=== PATIENT | male | born 1945 | race Caucasian/White ===

== ENCOUNTER 2017-10-25 09:23 | Outpatient (CLI) | payer MEDICARE, MEDICAID ==
[2017-10-25 10:07] LABS: #Basophils 0.1 thou/uL (0.0-0.2); #Eosinphils 0.1 thou/uL (0.0-0.7); #Lymphocytes 2.1 thou/uL (1.20-3.40); #Monocytes 0.6 thou/uL (0.11-0.59); #Neutrophils 4.8 thou/uL (1.40-6.50); %Basophils 0.8 % (0.0-1.0); %Lymphocytes 27.3 % (21.0-51.0); %Monocytes 8.1 % (0.0-10.0); %Neutrophils 62.9 % (42.0-75.0); Hemoglobin 15.1 g/dL (14.0-18.0); Mean Corpuscular HGB CONC 34.1 g/dL (32.0-36.0); Mean Corpuscular Hemoglobin 31.8 pg (27.0-31.0); Mean Corpuscular Volume 93.2 fl (80.0-94.0); Mean Platelet Volume 5.9 fL (7.4-10.4); Platelet Count 258 thou/uL (130-400); RBC Distribution Width 12.2 % (11.5-14.5); Red Blood Cell (RBC) Count 4.76 mill/uL (4.70-6.10); White Blood Cell (WBC) Count 7.6 thou/uL (4.8-10.8)
[2017-10-25 10:16] LABS: Bilirubin Negative (Negative); Blood, Urine Negative (Negative); Clarity CLEAR (Clear); Glucose, Urine (Dipstick) Negative (Negative); Leukocyte Negative (Negative); Nitrite Negative (Negative); Protein, Urine (Dipstick) Negative (Neg-Trace); Specific Gravity, Urine 1.013 (1.002-1.036); Urobilinogen 0.2 mg/dL (0.2-1.0); pH, Urine 6.5 (5.0-9.0)
[2017-10-25 10:20] LABS: Bacteria/HPF None Seen HPF (None Seen); Hyaline Casts/LPF 0-3 HYALINE CAST LPF (0-3 Hyaline); RBC/HPF 0-3 HPF (0-3); Squamous Epithelial None Seen HPF (0-3); WBC/HPF None Seen HPF (0-3)
[2017-10-25 10:24] LABS: INR-International Normal Ratio 1.1; Prothrombin Time 14.5 SEC (12.0-14.7)
[2017-10-25 10:28] LABS: Anion Gap 11 mmol/L (10-20); BUN (Urea Nitrogen) 19 mg/dL (8.4-25.7); Calc. Creatinine Clearance 0 mL/min (70-130); Calcium 9.8 mg/dL (7.8-10.44); Carbon Dioxide 31 mmol/L (23-31); Chloride 101 mmol/L (98-107); Estimated GFR-MDRD 67; Glucose 100 mg/dL (83-110); Potassium 4.1 mmol/L (3.5-5.1); Sodium 139 mmol/L (136-145)
== END 2017-10-25 09:24 | disposition home or self-care (01) ==
LOC: LABBT 09:23
PROVIDERS: ATTEND Orthopaedic Surgery
DX: Z01.818 Encounter for other preprocedural examination (principal); M17.11 Unilateral primary osteoarthritis, right knee
CPT/HCPCS: 80048; 81001; 85025; 85610; 87081; 93005; 93010

== ENCOUNTER 2017-11-01 09:50 | Outpatient (CLI) | payer MEDICARE, MEDICAID | END 2017-11-01 09:51 | disposition home or self-care (01) | LOC: LABBT 09:50 | PROVIDERS: ATTEND Orthopaedic Surgery | DX: Z01.818 Encounter for other preprocedural examination (principal); M17.11 Unilateral primary osteoarthritis, right knee | CPT/HCPCS: 86850; 86900; 86901 ==

== ENCOUNTER 2017-11-05 06:52 | Day surgery (SDC) | payer MEDICARE, MEDICAID ==
[2017-10-25 12:31] VITALS: BMI 33.9
[2017-11-05] MEDS ORDERED: Sodium Chloride 0.9% 100 ML ONE (07:14)
[2017-11-05] MEDS ORDERED: CEFAZOLIN/Water 2 GM/20 ML SYRINGE ONE (07:14)
[2017-11-05] MEDS ORDERED: Vancomycin HCl 1.5 GM in Sodium Chloride 0.9% 250 ML 300 ML IVPB SCH (07:30)
[2017-11-05] MEDS ORDERED: Ondansetron HCl/PF 4 MG/2 ML Vial IVP PRN ×3 (07:43→11:32)
[2017-11-05] MEDS ORDERED: Ropivacaine 0.5% HCl/PF (150 MG/30 ML VIAL) ONE (07:46)
[2017-11-05] MEDS ORDERED: Midazolam HCl 2 mg/2 ml Vial ONE (07:46)
[2017-11-05] MEDS ORDERED: Fentanyl 100 MCG/2 ML VIAL ONE ×2 (07:46→11:38)
[2017-11-05] MEDS ORDERED: Promethazine HCl 25 MG/ML VIAL IM PRN ×2 (08:21→11:32)
[2017-11-05] MEDS ORDERED: traMADol HCl 50 MG TAB PO PRN ×3 (08:21→11:32)
[2017-11-05] MEDS ORDERED: Bupivacaine 0.5% 50 ML in Sodium Chloride 0.9% 50 ML NERVE BLCK SCH (08:21)
[2017-11-05] MEDS ORDERED: HYDROcodone/Acetaminophen 10/325 mg Tablet PO PRN (08:21)
[2017-11-05] MEDS ORDERED: Zolpidem Tartrate 5 MG TAB PO PRN ×2 (08:21→11:32)
[2017-11-05] MEDS ORDERED: Fentanyl 100 MCG/2 ML VIAL IV PRN (08:22)
[2017-11-05] MEDS ORDERED: Meperidine HCl/PF 25 MG/ML VIAL ONE (10:07)
[2017-11-05] MEDS ORDERED: Bupivacaine HCl 0.5%/Epinephrine 1:200,000/PF 30 ml Vial ONE (10:09)
[2017-11-05] MEDS ORDERED: Dexamethasone 20 MG/5 ML VIAL ONE (10:46)
[2017-11-05] MEDS ORDERED: Ondansetron HCl/PF 4 MG/2 ML Vial ONE (10:46)
[2017-11-05] MEDS ORDERED: PROPOFOL 200 MG/20 ML VIAL ONE (10:46)
[2017-11-05] MEDS ORDERED: diphenhydrAMINE 25 MG CAP PO PRN (11:32)
[2017-11-05] MEDS ORDERED: Acetaminophen 325 MG TAB PO PRN (11:32)
[2017-11-05] MEDS ORDERED: Tranexamic Acid 1,000 MG in Sodium Chloride 0.9% 100 ML IVPB SCH (11:45)
--- NOTE | 2017-11-05 11:49 | OP ---
DATE OF PROCEDURE: 11/05/2017 PREOPERATIVE DIAGNOSIS: Right knee osteoarthrosis. POSTOPERATIVE DIAGNOSIS: Right knee osteoarthrosis. PROCEDURE PERFORMED: Right total knee replacement using Acomni pinless navigation. SURGEON: Paresh Patel M.D. IT INFRASTRUCTURE ENGINEER: Severino Abbasi PA-C. BLOOD LOSS: Minimal. COMPLICATIONS: None. ANESTHESIA: The patient had general anesthetic as well as a preoperative block. COMPLICATIONS: There were no complications. IMPLANTS: To the right knee is Triathlon total knee system, the femur was size 4, cruciate retaining . We used a size 5 universal tibial baseplate. We used a 5 x 13 mm CS X3 poly and we used an asymme tric 29 x 9 X3 patella. CONDITION: He did go to the recovery room in stable condition. INDICATIONS: This is a 72-year-old male who has failed nonoperative treatment for severe knee arthri tis and pain and at this time, he wished to have surgery. PROCEDURE IN DETAIL: After all appropriate consent forms were explained and signed, the patient was taken back to the Operating Room and at this time was given general anesthetic. Once the level of an esthesia was appropriate, a well-padded tourniquet was placed on the right leg and the leg was then p repped and draped in standard surgical fashion. The limb was exsanguinated and tourniquet taken up t o 300 mmHg. Midline incision was made with a 10 blade down through the skin and subcutaneous tissue. Bovie electrocautery was used to coagulate any brisk venous bleeding. A new blade was used to make a medial parapatellar arthrotomy. Small subperiosteal release was performed medially and excess fat pad was removed. The knee was flexed up to gain access to the femur. The femur was navigated and d istal femoral resection was made. Epicondylar access was used to align our sizing jig and this was p inned in place. We sized our femur to be a 4. A 4:1 cutting block was applied and pinned. Anterior and posterior chamfer cuts were then made. We navigated out our proximal tibia and made our proxima l tibial resection. Spreaders were used to remove any posterior osteophytes off the back of the femu r as well as remaining meniscal tissue. A long alignment delmer was then used to achieve correct rotati on of our tibial baseplate and a size 5 was chosen. This was pinned in place. We trialed the polyet hylene and a 5 x 13 mm CS X3 polyethylene gave us full extension and good stability throughout range of motion. Two towel clips and a saw were used to cut our patella. Three lug nuts were drilled and an asymmetric 29 x 9 X3 patella was trialed which sat nicely in the trochlear groove. We then drille d our femur and punched our tibia. All components were removed. The knee was thoroughly irrigated a nd dried. Cement was mixed into the cement gun on the back table. Components were then placed. The knee was held out in full extension until the cement had dried. All excess bone cement was removed. Multiple #2 Vicryl stitches as well as a Quill was used to close our extensor mechanism. 0 Quill f ollowed by a running Monoderm was then used to close the skin. Surgicel glue was then used on the sk in. Once this had dried, soft tissue dressing was applied to the limb, tourniquet was let down, and the toes pinked up nicely. The patient was then awakened and taken to the Recovery Room in stable co ndition. All counts were correct at the end of the case. The patient did receive preoperative IV an tibiotics. The patient was injected with Exparel for postoperative pain relief.
[2017-11-05] MEDS ORDERED: Ketorolac Tromethamine 30 MG/ML VIAL ONE (12:22)
[2017-11-05] MEDS ORDERED: Prevnar 13-Val Conj/PF 0.5 ML SYRINGE IM ONE (14:30)
[2017-11-05] MEDS: CEFAZOLIN/Water 2 GM/20 ML SYRINGE SLOW IVP SCH ×2 (14:45→23:08)
[2017-11-05] MEDS: Sodium Chloride 0.9% 1,000 ML IV SCH ×2 (14:46→21:05)
--- NOTE | 2017-11-05 15:02 | PDOC.PN ---
- Subjective Encounter Start Date: 11/05/17 Encounter Start Time: 14:00 Subjective: c/o pain in right knee -: no chest pain or sob -: family in room - Objective MAR Reviewed: Yes Vital Signs & Weight: Vital Signs (12 hours) Temp Pulse Resp BP Pulse Ox 11/05/17 12:45 97.7 F 79 18 169/81 H 98 Weight Weight 210 lb Phys Exam - Physical Examination HEENT: PERRLA, moist MMs Neck: no JVD, supple Respiratory: no wheezing, no rales Cardiovascular: RRR, no significant murmur Gastrointestinal: soft, non-tender, positive bowel sounds Musculoskeletal: no edema, pulses present right knee in dressing Neurological: non-focal, moves all 4 limbs Psychiatric: normal affect, A&O x 3 Dx/Plan (1) Status post total knee replacement, right Code(s): Z96.651 - PRESENCE OF RIGHT ARTIFICIAL KNEE JOINT Status: Acute (2) HTN (hypertension) Code(s): I10 - ESSENTIAL (PRIMARY) HYPERTENSION Status: Chronic Qualifiers: Hypertension type: essential hypertension Qualified Code(s): I10 - Essential (primary) hypertension (3) DM type 2 (diabetes mellitus, type 2) Status: Chronic Qualifiers: Diabetes mellitus pasting inspector insulin use: without chcf use Diabetes mellitus complication status: with unspecified complications Qualified Code(s) : E11.8 - Type 2 diabetes mellitus with unspecified complications (4) Dyslipidemia Code(s): E78.5 - HYPERLIPIDEMIA, UNSPECIFIED Status: Chronic (5) Gout Code(s): M10.9 - GOUT, UNSPECIFIED Status: Chronic Qualifiers: Gout site: unspecified site Chronicity: chronic (6) BPH (benign prostatic hyperplasia) Code(s): N40.0 - BENIGN PROSTATIC HYPERPLASIA WITHOUT LOWER URINRY TRACT SYMP Status: Chronic Qualifiers: Lower urinary tract symptom presence: symptoms absent Qualified Code(s): N40.0 - Benign prostatic hyperplasia without lower urinary tract symptoms - Plan on asp bid for dvt prophylaxis -: continue norvasc, metformin, zocor, flomax, allopurinol and fish oil -: PT per ortho advice -: marcaine nr block, fentanyl, toradol, norco prn for pain -: labs in am * . Review of Systems - Medications/Allergies Allergies/Adverse Reactions: Allergies Allergy/AdvReac Type Severity Reaction Status Date / Time No Known Allergies Allergy Unverified 10/25/17 12:29 Medications: Current Medications Acetaminophen (Tylenol) 650 mg PO Q4H PRN PRN Reason: PAYAN/ T > 101F; Mild Pain (1-3) Hydrocodone Bitart/Acetaminophen ([place] 10/325) 1 tab PO Q4H PRN PRN Reason: Pain (1-3) Hydrocodone Bitart/Acetaminophen ([place] 10/325) 2 tab PO Q4H PRN PRN Reason: PAIN (4-6) Allopurinol (Zyloprim) 300 mg PO DAILY [facility] Amlodipine Besylate (Norvasc) 10 mg PO QAM [facility] Aspirin (Ecotrin) 81 mg PO BID [facility] Cefazolin Sodium (Ancef) 2 gm SLOW IVP Q8HR [facility] Stop: 11/05/17 22:01 Last Admin: 11/05/17 14:45 Dose: 2 gm Diphenhydramine HCl (Benadryl) 25 mg PO Q6H PRN PRN Reason: Itching Fentanyl (Sublimaze) 50 mcg IV Q1H PRN PRN Reason: breakthrough pain Ferrous Gluconate (Fergon) 324 mg PO BID-[facility] Fish Oil (Fish Oil) 1,000 mg PO HS [facility] Bupivacaine HCl 50 ml/ Sodium (Chloride) 100 mls @ 8 mls/hr NERVE BLCK INF [facility] Sodium Chloride (Normal Saline 0.9%) 1,000 mls @ 100 mls/hr IV .Q10H [facility] Last Admin: 11/05/17 14:46 Dose: 1,000 mls Vancomycin HCl 2 gm/ Sodium (Chloride) 500 mls @ 250 mls/hr IVPB 1999 [facility] Stop: 11/05/17 21:59 Iron/Minerals/Multivitamins (Theragran M) 1 tab PO DAILY [facility] Ketorolac Tromethamine (Toradol) 15 mg IVP Q6HR [facility] Stop: 11/07/17 12:01 Levothyroxine Sodium (Synthroid) 100 mcg PO 0600 [facility] Metformin HCl (Glucophage) 500 mg PO QAM-[facility] Ondansetron HCl (Zofran) 4 mg IVP Q6H PRN PRN Reason: Nausea/Vomiting Promethazine HCl (Phenergan) 12.5 mg IM Q4H PRN PRN Reason: Nausea Senna/Docusate Sodium (Senokot S) 2 tab PO BID [facility] Simvastatin (Zocor) 40 mg PO HS [facility] Sodium Chloride (Flush - Normal Saline) 10 ml IVF PRN PRN PRN Reason: Saline Flush Tamsulosin HCl (Flomax) 0.4 mg PO QAM [facility] Tramadol HCl (Ultram) 50 mg PO Q6H PRN PRN Reason: Mild Pain (1-3) Tramadol HCl (Ultram) 100 mg PO Q6H PRN PRN Reason: Moderate Pain 4-6 Zolpidem Tartrate (Ambien) 5 mg PO HSPRN PRN PRN Reason: Insomnia
[2017-11-05] MEDS: Ketorolac Tromethamine 30 MG/ML VIAL IVP SCH ×3 (15:03→23:08)
[2017-11-05] MEDS ORDERED: Dextrose 50% Abboject 50 ML SYRINGE SLOW IVP PRN (15:07)
[2017-11-05] MEDS ORDERED: HumaLOG 300 UNITS/3 ML VIAL SC PRN (15:07)
[2017-11-05] MEDS ORDERED: Dextrose 5% in Water 1,000 ML IV PRN (15:07)
[2017-11-05] MEDS: HYDROcodone/Acetaminophen 10/325 mg Tablet PO PRN ×2 (16:36→23:16)
[2017-11-05] MEDS: Aspirin 81 mg Enteric Coated Tablet PO SCH (20:54)
[2017-11-05] MEDS ORDERED: Simvastatin 40 MG TAB PO SCH (21:00)
[2017-11-06 04:29] LABS: Hemoglobin 12.2 g/dL (14.0-18.0); Mean Corpuscular HGB CONC 34.4 g/dL (32.0-36.0); Mean Corpuscular Hemoglobin 32.4 pg (27.0-31.0); Mean Corpuscular Volume 94.1 fl (80.0-94.0); Mean Platelet Volume 6.1 fL (7.4-10.4); Platelet Count 204 thou/uL (130-400); RBC Distribution Width 12.2 % (11.5-14.5); Red Blood Cell (RBC) Count 3.76 mill/uL (4.70-6.10); White Blood Cell (WBC) Count 10.1 thou/uL (4.8-10.8)
[2017-11-06 04:37] LABS: Anion Gap 9 mmol/L (10-20); BUN (Urea Nitrogen) 13 mg/dL (8.4-25.7); Calc. Creatinine Clearance 97 mL/min (70-130); Calcium 8.2 mg/dL (7.8-10.44); Carbon Dioxide 27 mmol/L (23-31); Chloride 108 mmol/L (98-107); Estimated GFR-MDRD 79; Glucose 132 mg/dL (83-110); Potassium 4.1 mmol/L (3.5-5.1); Sodium 140 mmol/L (136-145)
[2017-11-06] MEDS ORDERED: Levothyroxine Sodium 100 MCG TAB PO SCH (06:00)
[2017-11-06] MEDS: Ketorolac Tromethamine 30 MG/ML VIAL IVP SCH ×2 (06:25→11:27)
[2017-11-06] MEDS: Sodium Chloride 0.9% 1,000 ML IV SCH (07:06)
[2017-11-06] MEDS ORDERED: Ferrous Gluconate 324 MG TAB PO SCH (08:00)
[2017-11-06] MEDS ORDERED: metFORMIN 500 MG TAB PO SCH (08:00)
[2017-11-06] MEDS: HYDROcodone/Acetaminophen 10/325 mg Tablet PO PRN (08:54)
[2017-11-06] MEDS: Aspirin 81 mg Enteric Coated Tablet PO SCH (08:55)
[2017-11-06] MEDS ORDERED: Tamsulosin HCl 0.4 MG CAP PO SCH (09:00)
[2017-11-06] MEDS ORDERED: Amlodipine 10 MG TAB PO SCH (09:00)
[2017-11-06] MEDS ORDERED: Non-Formulary Item 1 EACH (Multivitamin [Daily Multiple Vitamin] 1 EACH) PO SCH (09:00)
[2017-11-06] MEDS ORDERED: Allopurinol 300 MG TAB PO SCH (09:00)
[2017-11-06] MEDS ORDERED: Senokot S 8.6-50 MG TAB PO SCH (09:00)
[2017-11-06] MEDS ORDERED: Multivitamin W/ Minerals 1 TAB PO SCH (09:00)
[2017-11-06] MEDS ORDERED: cloNIDine 0.1 MG TAB PO SCH (10:30)
--- NOTE | 2017-11-06 11:38 | PDOC.PN ---
- Subjective Encounter Start Date: 11/06/17 Encounter Start Time: 09:15 Subjective: no sob, feels better this am -: pain is better - Objective MAR Reviewed: Yes Vital Signs & Weight: Vital Signs (12 hours) Temp Pulse Resp BP BP Pulse Ox 11/06/17 10:37 182/92 H 11/06/17 08:55 71 177/74 H 11/06/17 08:00 97.8 F 71 18 193/89 H 97 11/06/17 07:43 97.8 F 71 17 97 11/06/17 04:35 97.8 F 71 17 177/74 H 97 11/06/17 00:10 98.2 F 75 16 165/89 H 98 Weight Admit Weight 210 lb Weight 210 lb I&O: 11/05/17 11/06/17 11/07/17 06:59 06:59 06:59 Output Total 750 Balance -750 Result Diagrams: 11/06/17 03:34 11/06/17 03:34 Additional Labs: Accuchecks 11/06/17 11/05/17 11/05/17 05:49 21:16 16:34 POC Glucose 120 H 181 H 253 H Phys Exam - Physical Examination HEENT: PERRLA, moist MMs Neck: no JVD, supple Respiratory: no wheezing, no rales Cardiovascular: RRR, no significant murmur Gastrointestinal: soft, non-tender, positive bowel sounds Musculoskeletal: no edema, pulses present Neurological: non-focal, moves all 4 limbs Psychiatric: normal affect, A&O x 3 Dx/Plan (1) Status post total knee replacement, right Code(s): Z96.651 - PRESENCE OF RIGHT ARTIFICIAL KNEE JOINT Status: Acute (2) HTN (hypertension) Code(s): I10 - ESSENTIAL (PRIMARY) HYPERTENSION Status: Chronic Qualifiers: Hypertension type: essential hypertension Qualified Code(s): I10 - Essential (primary) hypertension (3) DM type 2 (diabetes mellitus, type 2) Status: Chronic Qualifiers: Diabetes mellitus snf insulin use: without truck terminal manager use Diabetes mellitus complication status: with unspecified complications Qualified Code(s) : E11.8 - Type 2 diabetes mellitus with unspecified complications (4) Dyslipidemia Code(s): E78.5 - HYPERLIPIDEMIA, UNSPECIFIED Status: Chronic (5) Gout Code(s): M10.9 - GOUT, UNSPECIFIED Status: Chronic Qualifiers: Gout site: unspecified site Chronicity: chronic (6) BPH (benign prostatic hyperplasia) Code(s): N40.0 - BENIGN PROSTATIC HYPERPLASIA WITHOUT LOWER URINRY TRACT SYMP Status: Chronic Qualifiers: Lower urinary tract symptom presence: symptoms absent Qualified Code(s): N40.0 - Benign prostatic hyperplasia without lower urinary tract symptoms - Plan is amb with PT -: hemostable -: continue norvasc, metformin, allopurinol and flomax -: dc plan per ortho advice * . Review of Systems - Medications/Allergies Allergies/Adverse Reactions: Allergies Allergy/AdvReac Type Severity Reaction Status Date / Time No Known Allergies Allergy Unverified 10/25/17 12:29 Medications: Current Medications Acetaminophen (Tylenol) 650 mg PO Q4H PRN PRN Reason: PAYAN/ T > 101F; Mild Pain (1-3) Hydrocodone Bitart/Acetaminophen ([place] 10/325) 1 tab PO Q4H PRN PRN Reason: Pain (1-3) Last Admin: 11/06/17 08:54 Dose: 1 tab Hydrocodone Bitart/Acetaminophen ([place] 10/325) 2 tab PO Q4H PRN PRN Reason: PAIN (4-6) Allopurinol (Zyloprim) 300 mg PO DAILY [facility] Last Admin: 11/06/17 08:55 Dose: 300 mg Amlodipine [facility] ([facility]asc) [facility] Last Admin: 11/06/17 08:55 Dose: 10 mg Aspirin (Ecotrin) 81 mg PO BID [facility] Last Admin: 11/06/17 08:55 Dose: 81 mg Clonidine (Catapres) 0.1 mg PO NOW [facility] Stop: 11/06/17 12:00 Last Admin: 11/06/17 10:37 Dose: 0.1 mg Dextrose/Water (Dextrose 50%) 25 gm SLOW IVP PRN PRN PRN Reason: Hypoglycemia Diphenhydramine HCl (Benadryl) 25 mg PO Q6H PRN PRN Reason: Itching Fentanyl (Sublimaze) 50 mcg IV Q1H PRN PRN Reason: breakthrough pain Ferrous Gluconate (Fergon) 324 mg PO BID-[facility] Last Admin: 11/06/17 08:55 Dose: 324 mg Fish Oil (Fish Oil) 1,000 mg PO [facility] Glucagon (Glucagon) 1 mg IM PRN PRN PRN Reason: Hypoglycemia Bupivacaine HCl 50 ml/ Sodium (Chloride) 100 mls @ 8 mls/hr NERVE BLCK INF [facility] Last Admin: 11/05/17 23:17 Dose: 100 mls Sodium Chloride (Normal Saline 0.9%) 1,000 mls @ 100 mls/hr IV .Q10H [facility] Last Admin: 11/06/17 07:06 Dose: Not Given Dextrose/Water (D5w) 1,000 mls @ 0 mls/hr IV .Q0M PRN; As Directed PRN Reason: Hypoglycemia Insulin Human Lispro (Humalog) 0 units SC .MODERATE SLIDING SC PRN PRN Reason: Moderate [employer] Scale Last Admin: 11/05/17 18:29 Dose: 6 unit Iron/Minerals/Multivitamins (Theragran M) 1 tab PO DAILY [facility] Last Admin: 11/06/17 08:55 Dose: 1 tab Ketorolac Tromethamine (Toradol) 15 mg IVP Q6HR [facility] Stop: 11/07/17 12:01 Last Admin: 11/06/17 11:27 Dose: 15 mg Levothyroxine Sodium (Synthroid) 100 mcg PO 0600 [facility] Last Admin: 11/06/17 06:25 Dose: 100 mcg Metformin HCl (Glucophage) 500 mg PO QAM[facility] Last Admin: 11/06/17 08:55 Dose: 500 mg Ondansetron HCl (Zofran) 4 mg IVP Q6H PRN PRN Reason: Nausea/Vomiting Promethazine HCl (Phenergan) 12.5 mg IM Q4H PRN PRN Reason: Nausea Senna/Docusate Sodium (Senokot S) 2 tab PO BID [facility] Last Admin: 11/06/17 08:55 Dose: 2 tab Simvastatin (Zocor) 40 mg PO [facility] Last Admin: 11/05/17 20:54 Dose: 40 mg Sodium Chloride (Flush - Normal Saline) 10 ml IVF PRN PRN PRN Reason: Saline Flush Tamsulosin HCl (Flomax) 0.4 mg PO QAM [facility] Last Admin: 11/06/17 08:55 Dose: 0.4 mg Tramadol HCl (Ultram) 50 mg PO Q6H PRN PRN Reason: Mild Pain (1-3) Tramadol HCl (Ultram) 100 mg PO Q6H PRN PRN Reason: Moderate Pain 4-6 Zolpidem Tartrate (Ambien) 5 mg PO HSPRN PRN PRN Reason: Insomnia
[2017-11-06 11:44] VITALS: BP 163/83; TEMP 97.4
[2017-11-06] MEDS ORDERED: Ropivacaine 0.2% 550 ML 550 ML NERVE BLCK SCH (12:06)
[2017-11-06] MEDS ORDERED: Fish Oil 1,000 MG CAP PO SCH (21:00)
--- NOTE | 2017-11-07 02:24 | DIS ---
DATE OF ADMISSION: 11/05/2017 DATE OF DISCHARGE: 11/06/2017 DISCHARGE DISPOSITION: To home. PRIMARY DISCHARGE DIAGNOSES: Patient is status post right total knee replacement. SECONDARY DISCHARGE DIAGNOSES: Hypertension, dyslipidemia, diabetes mellitus type 2, benign prostati c hypertrophy, and gout. PROCEDURES DONE DURING HOSPITALIZATION: Patient has had right total knee replacement done by Dr. Irlnada gómez on 11/05/2017. Postop H&H 12 and 35, platelet count 204. Postop BUN and creatinine 13 and 0.9. DISCHARGE MEDICATIONS: Aspirin 81 mg p.o. twice daily for postop knee DVT prophylaxis, Norvasc 10 mg p.o. q.a.m., Zyloprim 300 mg p.o. q.a.m., levothyroxine 100 mcg p.o. daily, metformin extended-relea se 500 mg p.o. q.a.m., multivitamin 1 tab once daily, fish oil 1 capsule daily, Zocor 40 mg p.o. at b edtime, Flomax 0.4 mg p.o. q.a.m. ALLERGIES: No known drug allergies. DISCHARGE PLAN: Patient to follow up with his primary care physician in one week and Dr. Patel as adv ised. BRIEF COURSE DURING HOSPITALIZATION: Patient electively got admitted for right total knee replacemen t by Dr. Patel. This was done on 11/05/2017. Postop [facility] were consulted for comanagement of medical issues. Patient has remained hemodynamically stable postop. He is actively working with physical therapy. Patient will likely be going home this afternoon. He needs follow [facility] in one week and Dr. Patel as advised. Please see a [id number] documentation fo r [facility]
== END 2017-11-06 15:40 | disposition home or self-care (01) ==
LOC: SDC 06:52 → SJJU 11:32 → SDC 11-06 15:40
PROVIDERS: ATTEND Orthopaedic Surgery
PROC: 0SRC069 Replacement of Right Knee Joint with Oxidized Zirconium on Polyethylene Synthetic Substitute, Cemented, Open Approach (ICD-10-PCS; principal; 2017-11-05)
DX: M17.11 Unilateral primary osteoarthritis, right knee (principal); I10 Essential (primary) hypertension; E78.5 Hyperlipidemia, unspecified; E11.9 Type 2 diabetes mellitus without complications; N40.0 Benign prostatic hyperplasia without lower urinary tract symptoms; M10.9 Gout, unspecified; Z79.82 Long term (current) use of aspirin; Z79.899 Other long term (current) drug therapy; Z79.84 Long term (current) use of oral hypoglycemic drugs
CPT/HCPCS: 27447; 80048; 82962; 85027; 97110; 97116; 97139 ×2; 97150; 97530; A4306; C1713; C1776; G8978; G8979; 36415; 36416; 96374; 96376; J0670; J1100; J1885; J2175; J2250; J2405; J2704; J2795; J3010; J3370; J3490; J7050

== ENCOUNTER 2018-06-14 06:31 | Day surgery (SDC) | payer MEDICARE, MEDICAID ==
[2018-06-13 13:48] VITALS: BMI 35.5
[2018-06-14] MEDS ORDERED: Fentanyl 100 MCG/2 ML VIAL ONE ×2 (06:43→10:10)
[2018-06-14] MEDS ORDERED: Bacitracin Zinc Ointment 30 gm TUBE ONE (06:53)
[2018-06-14] MEDS ORDERED: Bupivacaine PF 0.5% 30 ML VIAL ONE (06:53)
[2018-06-14] MEDS ORDERED: CEFAZOLIN 2 GM/50 ML BAG ONE (06:57)
[2018-06-14 07:41] LABS: #Basophils 0.1 thou/uL (0.0-0.2); #Eosinphils 0.2 thou/uL (0.0-0.7); #Lymphocytes 2.5 thou/uL (1.20-3.40); #Monocytes 0.5 thou/uL (0.11-0.59); #Neutrophils 2.7 thou/uL (1.40-6.50); %Basophils 0.9 % (0.0-1.0); %Eosinophils 2.8 % (0.0-10.0); %Lymphocytes 42.2 % (21.0-51.0); %Monocytes 8.9 % (0.0-10.0); %Neutrophils 45.3 % (42.0-75.0); Hemoglobin 14.1 g/dL (14.0-18.0); Mean Corpuscular HGB CONC 33.5 g/dL (32.0-36.0); Mean Corpuscular Volume 89.5 fL (78.0-98.0); Mean Platelet Volume 6.7 fL (7.4-10.4); Platelet Count 267 thou/uL (130-400); Red Blood Cell (RBC) Count 4.69 mill/uL (4.70-6.10); White Blood Cell (WBC) Count 5.9 thou/uL (4.8-10.8)
[2018-06-14 07:47] LABS: Anion Gap 11 mmol/L (10-20); BUN (Urea Nitrogen) 14 mg/dL (8.4-25.7); Calc. Creatinine Clearance 89 mL/min (70-130); Calcium 8.9 mg/dL (7.8-10.44); Carbon Dioxide 27 mmol/L (23-31); Chloride 107 mmol/L (98-107); Estimated GFR-MDRD 67; Glucose 105 mg/dL (83-110); Potassium 3.9 mmol/L (3.5-5.1); Sodium 141 mmol/L (136-145)
--- NOTE | 2018-06-14 07:49 | RAD ---
CHEST PA AND LATERAL TWO VIEWS: History: 72-year-old male with history of preoperative evaluation, purple one. FINDINGS: Heart size is normal. The lungs are clear. No pneumonia, edema, pleural effusion or other acute proce ss. IMPRESSION: NO acute intrathoracic disease. POS: [facility]
[2018-06-14 07:56] LABS: Bacteria/HPF Rare-Few HPF (None Seen); RBC/HPF 0-3 HPF (0-3); Squamous Epithelial 0-3 HPF (0-3); Transitional Epithelial NONE SEEN HPF (0-3); WBC/HPF 0-3 HPF (0-3)
[2018-06-14] MEDS ORDERED: Betamet Acet/Betamet Na Ph 30 MG/5 ML VIAL ONE (08:26)
[2018-06-14] MEDS ORDERED: Ketorolac Tromethamine 30 MG/ML VIAL ONE (12:09)
[2018-06-14] MEDS ORDERED: ePHEDrine/0.9% NaCl/PF SYRINGE 50 mg/10 ml ONE (12:09)
[2018-06-14] MEDS ORDERED: PHENYLEPHRINE-NS 100 MCG/ML 10 ML SYRINGE ONE (12:09)
[2018-06-14] MEDS ORDERED: Lidocaine 1% PF 5 ML VIAL ONE (12:09)
[2018-06-14] MEDS ORDERED: Ondansetron PF 4 MG/2 ML Vial ONE (12:09)
[2018-06-14] MEDS ORDERED: PROPOFOL 200 MG/20 ML VIAL ONE (12:09)
--- NOTE | 2018-06-17 14:19 | OP ---
DATE OF PROCEDURE: 06/14/2018 PREOPERATIVE DIAGNOSES: 1. Carpal tunnel syndrome, right. 2. Right volar wrist ganglion. FINDINGS: Right volar wrist ganglion with a 3 mm stalk bilobed; one lobe 3 cm and one lobe 1 cm radial artery in-between. PROCEDURES PERFORMED: 1. Carpal tunnel release. 2. Right palmar wrist ganglion excision with arthrotomy. TOURNIQUET TIME: Thirty-one minutes. BLOOD LOSS: 15 mL. SPECIMEN: The ganglion cyst cavity. The ganglion appeared from the palmar radiocarpal joint and then patient had a very tight transverse carpal ligament in the mid section. ANESTHESIA: General LMA technique augmented by 20 mL of 0.5% Marcaine for the surgical site. These surgeries took place with two different incisions. DESCRIPTION OF PROCEDURE: After successful general LMA technique, the limb was prepped and draped. We outlined a mini carpal tunnel incision beginning 5 mm distal to the volar wrist flexion crease and coursing for 2.5 cm up to Hyde's cardinal line and in line with the midportion of the ring finger. We also outlined a zigzag incision slightly radial to avoid the palmar cutaneous branch between the two lobes of the mass as described above. We exsanguinated the limb and inflated the tourniquet to 250 mmHg pressure. We approached the carpal tunnel first, carried incision through skin, subcutaneous tissue down to the fascia and the palmaris longus tendon. Brandt blade was used to enter the bed of the palmaris longus on its ulnar aspect and then once we made our first 5 mm incision of the transcarpal ligament, we then dissected from there distally, protecting the distal neurovascular structures and the type 1 motor branch takeoff. Then from here proximally, I dissected free the subcutaneous tissue of the transcarpal ligament visualized it proximal to the volar wrist flexion crease and released it completely with a combination of Brandt blade and tenotomy scissors. There was no tenosynovitis, so a synovectomy was not indicated here. We placed 2 mL of Celestone here and closed the wound with interrupted 4-0 nylon mattress pattern. A 3 cm incision was then made over the 3 cm ganglion, carried through skin and subcutaneous tissue until we could visualize the bilobed ganglion and protected the palmar cutaneous branch ulnar to our dissection. Here, we saw that the primary radial artery itself was slightly pushed ulnarly and its radial branch was over the lobes, so we had to separate them completely and free them enough to retract the lobes radially. We then followed both down to a common stalk in the central and radial radiocarpal joint, opened the joint around the stalk and left a 4 mm hole obliquely oriented and lifted the ganglion out with only minimal fluid loss. This was sent as specimen. I released the tourniquet, obtained hemostasis. The joint had been opened via arthrotomy in a mini technique. We then placed 2 mL of Celestone over this area, and then we obtained hemostasis and with the use of two vessel clips, I closed this wound with interrupted 4-0 nylon in a mattress pattern. Bulky dressing was applied along with a palmar short-arm splint and the patient left the operating room without evidence of anesthetic operative complication. Job ID: [id number]
== END 2018-06-14 11:50 | disposition home or self-care (01) ==
LOC: SDC 06:31
PROVIDERS: ATTEND Orthopaedic Surgery Hand Surgery
PROC: 01N50ZZ Release Median Nerve, Open Approach (ICD-10-PCS; principal; 2018-06-14)
PROC: 0LB50ZZ Excision of Right Lower Arm and Wrist Tendon, Open Approach (ICD-10-PCS; 2018-06-14)
DX: G56.01 Carpal tunnel syndrome, right upper limb (principal); M67.431 Ganglion, right wrist; E11.9 Type 2 diabetes mellitus without complications; I10 Essential (primary) hypertension; Z79.84 Long term (current) use of oral hypoglycemic drugs; Z79.899 Other long term (current) drug therapy
CPT/HCPCS: 71046; 80048; 81015; 85025; 88304; 88305; 88311; 93005; 93010; J0702; J1885; J2001; J2405; J2704; J3010; S0020

== ENCOUNTER 2023-09-26 12:40 | Outpatient (CLI) | payer MEDICARE, MEDICAID | END 2023-09-26 12:41 | disposition home or self-care (01) | LOC: LABBT 12:40 | PROVIDERS: ATTEND Orthopaedic Surgery | DX: Z01.818 Encounter for other preprocedural examination (principal); M17.12 Unilateral primary osteoarthritis, left knee | CPT/HCPCS: 71046; 93005; 93010 ==

== ENCOUNTER 2024-07-03 01:30 | Outpatient (CLI) | payer MEDICARE, MEDICAID ==
[2024-07-03 14:01] LABS: #Basophils 0.03 10x3/uL (0.0-0.2); %Basophils 0.4 % (0.0-1.0); %Eosinophils 2.1 % (0.0-10.0); %Lymphocytes 24.1 % (21.0-51.0); %Monocytes 7.9 % (0.0-10.0); %Neutrophils 64.9 % (42.0-75.0); Hematocrit 38.6 % (42.0-52.0); Hemoglobin 13.4 g/dL (14.0-18.0); Mean Corpuscular HGB CONC 34.7 g/dL (32.0-36.0); Mean Corpuscular Hemoglobin 31.5 pg (27.0-31.0); Mean Corpuscular Volume 90.6 fL (78.0-98.0); Mean Platelet Volume 8.7 fL (7.4-10.4); Platelet Count 233 10x3/uL (130-400); RBC Distribution Width 12.9 % (11.5-14.5); Red Blood Cell (RBC) Count 4.26 mill/uL (4.70-6.10)
[2024-07-03 14:21] LABS: Anion Gap 13 mmol/L (10-20); BUN (Urea Nitrogen) 20 mg/dL (8.4-25.7); Calc. Creatinine Clearance 0 mL/min (70-130); Calcium 8.5 mg/dL (7.8-10.44); Carbon Dioxide 22 mmol/L (23-31); Chloride 109 mmol/L (98-107); Estimated GFR 59; Glucose 122 mg/dL (83-110); Potassium 3.7 mmol/L (3.5-5.1); Sodium 140 mmol/L (136-145)
[2024-07-03 14:22] LABS: INR-International Normal Ratio 1.2; Prothrombin Time 15.3 sec (12.0-14.7)
== END 2024-07-03 01:31 | disposition home or self-care (01) ==
LOC: LABBT 01:30
PROVIDERS: ATTEND Orthopaedic Surgery
DX: Z01.818 Encounter for other preprocedural examination (principal); M19.012 Primary osteoarthritis, left shoulder
CPT/HCPCS: 80048; 85025; 85610; 87081; 93005; 93010